=== PATIENT | male | born 1965 | race Caucasian/White ===

== ENCOUNTER 2023-10-30 11:38 | Outpatient (CLI) | payer OTHER, SELFPAY ==
--- NOTE | ~2023-10-30 | XR_ITS ---
EXAMINATION: XR lumbar spine min 4V DATE: 10/30/2023 12:04 INDICATION: Lumbar spondylosis TECHNIQUE: Anteroposterior and lateral in neutral, flexion and extension views of the lumbar spine we re obtained. COMPARISON: None. FINDINGS: There our 14 mm of anterolisthesis of L4 on L5 which reduces to 11 mm in extension and are unchanged in flexion. There appear to be bilateral L4 pars defects. There is severe loss of intervert ebral disc space height at L4-5. There is mild loss of intervertebral disc space height at L2-3 and L 5-S1. There is mild anterior wedging of the L1 and L3 vertebral bodies. Calcified atherosclerosis is noted. IMPRESSION: 1. Grade 2 anterolisthesis of L4 on L5 with slight reduction in extension. Likely bilateral L4 pars d efects. 2. Otherwise mild lumbar spondylosis. Reviewed, dictated and finalized at location B. [facility] CURATOR IMPRESSION: 1. Grade 2 anterolisthesis of L4 on L5 with slight reduction in extension. Like ly bilateral L4 pars defects. 2. Otherwise mild lumbar spondylosis.
== END 2023-10-30 11:39 | disposition home or self-care (01) ==
PROVIDERS: Visit Provider Physician Assistant
DX: M43.06 Spondylolysis, lumbar region (principal); M47.896 Other spondylosis, lumbar region
CPT/HCPCS: 72110